=== PATIENT | male | born 1980 | race Caucasian/White ===

== ENCOUNTER 2019-09-27 14:22 | Emergency (ER) | payer BC | END 2019-09-27 17:24 | disposition home or self-care (01) | LOC: ER 14:22 | DX: F10.239 Alcohol dependence with withdrawal, unspecified (principal); E87.1 Hypo-osmolality and hyponatremia; R56.9 Unspecified convulsions; R11.2 Nausea with vomiting, unspecified; F32.9 Major depressive disorder, single episode, unspecified; Z79.899 Other long term (current) drug therapy; Y90.0 Blood alcohol level of less than 20 mg/100 ml ==